=== PATIENT | female | born 1940 | race Caucasian/White ===

== ENCOUNTER 2018-03-20 11:58 | Outpatient (CLI) | payer MEDICARE | END 2018-03-20 11:59 | disposition home or self-care (01) | LOC: BICMAMMO 11:58 | PROVIDERS: ATTEND Internal Medicine | DX: Z12.31 Encounter for screening mammogram for malignant neoplasm of breast (principal); Z80.3 Family history of malignant neoplasm of breast | CPT/HCPCS: 77063; 77067 ==

== ENCOUNTER 2019-01-29 07:53 | Outpatient (CLI) | payer MEDICARE, OTHER ==
--- NOTE | 2019-01-29 09:12 | ULT ---
ABDOMINAL ULTRASOUND: Date: 01/29/19 HISTORY: Hepatic cyst. COMPARISON: 12/19/03. TECHNIQUE: Utilizing a multihertz transducer, sonographic imaging of the abdomen is performed in the longitudina l and transverse plane. FINDINGS: There is slight heterogeneity of the hepatic parenchymal echotexture which may be due to hepatic stea tosis or hepatocellular disease. Subsequent evaluation for hepatic masses and intrahepatic biliary di latation is limited. Nevertheless, there is anechoic focus with thin, imperceptible davidson, and throug h-transmission in the left hepatic lobe measuring 2.9 x 2.4 x 2.8 cm, compatible with a solitary hepa tic cyst. Right hepatic lobe measures 14.4 cm. Visualized aorta is unremarkable. IVC is not seen. The head and body of the pancreas have a normal e chotexture. Remainder of the pancreatic parenchyma is obscured by bowel gas. No sonographic evidence of cholelithiasis, gallbladder wall thickening, or pericholecystic fluid. Neg ative Moreno's sign. Common bile duct diameter is 0.5 cm. Right and left kidneys have a normal cortical echotexture. Bilaterally, no hydronephrosis. Right kidn ey measures 5.0 x 4.2 x 10.9 cm. Left kidney measures 4.9 x 5.4 x 10.4 cm. Spleen has a normal echotexture measuring 8.0 cm in maximum dimension. IMPRESSION: 1. Solitary hepatic cyst. 2. Slightly heterogeneous echotexture of the liver which may be due to hepatic steatosis or hepatoce llular disease. Correlate clinically. When compared to the previous examination, the hepatic cyst has increased in size. Previously, the cyst measured 1.6 x 1.2 x 1.8 cm. POS: [facility]
== END 2019-01-29 07:54 | disposition home or self-care (01) ==
LOC: BICULT 07:53
PROVIDERS: ATTEND Internal Medicine
DX: K76.89 Other specified diseases of liver (principal); R93.2 Abnormal findings on diagnostic imaging of liver and biliary tract
CPT/HCPCS: 76700

== ENCOUNTER 2019-10-16 09:29 | Outpatient (CLI) | payer MEDICARE, OTHER ==
--- NOTE | 2019-10-16 10:43 | MMO ---
Bilateral MAMMO Bilat Screen [facility]. CLINICAL HISTORY: Patient is 79 years old and is seen for screening. The patient has no family history of breast cancer. The patient has no personal history of cancer. VIEWS: The views performed were: bilateral craniocaudal with tomosynthesis and bilateral mediolateral oblique with tomosynthesis. FILMS COMPARED: The present examination has been compared to prior imaging studies performed at [facility] on 07/16/2013, 03/13/2015, 08/25/2016 and 03/20/2018. This study has been interpreted with the assistance of computer-aided detection. MAMMOGRAM FINDINGS: The breasts are heterogeneously dense, which could obscure a lesion on mammography. Benign calcifications are noted bilaterally. There are no suspicious masses, suspicious calcifications, or new areas of architectural distortion. IMPRESSION: THERE IS NO MAMMOGRAPHIC EVIDENCE OF MALIGNANCY. A ROUTINE FOLLOW-UP MAMMOGRAM IN 1 YEAR IS RECOMMENDED. THE RESULTS OF THIS EXAM WERE SENT TO THE PATIENT. ACR BI-RADS Category 2 - Benign finding MAMMOGRAPHY NOTE: 1. A negative mammogram report should not delay a biopsy if a dominant of clinically suspicious mass is present. 2. Approximately 10% to 15% of breast cancers are not detected by mammography. 3. Adenosis and dense breasts may obscure an underlying neoplasm. Reported by: CALEB JONES MD Electonically Signed: [id number]
== END 2019-10-16 09:30 | disposition home or self-care (01) ==
LOC: BICMAMMO 09:29
PROVIDERS: ATTEND Internal Medicine
DX: Z12.31 Encounter for screening mammogram for malignant neoplasm of breast (principal)
CPT/HCPCS: 77063; 77067

== ENCOUNTER 2025-02-23 14:19 | Inpatient (IN) | payer MEDICARE, OTHER ==
[2025-02-23 16:04] LABS: #Basophils 0.03 10x3/uL (0.0-0.2); #Eosinophils Less than 0.03 10x3/uL (0.0-0.7); #Monocytes 0.82 10x3/uL (0.11-0.59); #Neutrophils 8.38 10x3/uL (1.40-6.50); %Basophils 0.3 % (0.0-1.0); %Eosinophils 0.0 % (0.0-10.0); %Lymphocytes 14.8 % (21.0-51.0); %Monocytes 7.5 % (0.0-10.0); %Neutrophils 76.8 % (42.0-75.0); Hematocrit 40.2 % (36.0-47.0); Hemoglobin 14.3 g/dL (12.0-16.0); Mean Corpuscular Hemoglobin 32.9 pg (27.0-31.0); Mean Corpuscular Volume 92.4 fL (78.0-98.0); Platelet Count 223 10x3/uL (130-400); Red Blood Cell (RBC) Count 4.35 mill/uL (4.20-5.40); White Blood Cell (WBC) Count 10.92 10x3/uL (4.8-10.8)
[2025-02-23] MEDS ORDERED: diphenhydrAMINE 50 MG/ML VIAL ONE (16:19)
[2025-02-23] MEDS ORDERED: Dexamethasone 10 MG/ML VIAL ONE (16:19)
[2025-02-23] MEDS ORDERED: Metoclopramide HCl 10 MG (2 mL) VIAL ONE (16:19)
[2025-02-23 16:20] LABS: ALT (SGPT) 16 U/L (Less than 34); AST (SGOT) 36 U/L (11-34); Albumin 4.4 g/dL (3.1-4.5); Alkaline Phosphatase 62 U/L (40-110); Anion Gap 15 mmol/L (10-20); BUN (Urea Nitrogen) 7 mg/dL (9.8-20.1); Bilirubin, Total 0.5 mg/dL (0.3-1.2); Calc. Creatinine Clearance 0 mL/min (70-130); Calcium 9.5 mg/dL (7.8-10.44); Carbon Dioxide 23 mmol/L (23-31); Chloride 96 mmol/L (98-107); Globulin 2.9 g/dL (2.4-3.5); Glucose 93 mg/dL (83-110); Potassium 3.3 mmol/L (3.5-5.1); Sodium 131 mmol/L (136-145)
[2025-02-23 16:25] LABS: Troponin I 0.025 ng/mL (< 0.028)
[2025-02-23] MEDS ORDERED: Acetaminophen 325 MG TAB PO PRN (17:36)
[2025-02-23] MEDS ORDERED: Ondansetron PF 4 MG/2 ML Vial IVP PRN (17:36)
[2025-02-23 18:45] VITALS: BMI 30.7
[2025-02-23] MEDS: Famotidine/PF 20 mg/2ml Vial SLOW IVP SCH (20:32)
[2025-02-23] MEDS: levETIRAcetam 500 MG (5 mL) VIAL SLOW IVP SCH (20:32)
[2025-02-23] MEDS: Ketorolac Tromethamine 30 MG (1 mL) VIAL IVP PRN (20:32)
[2025-02-24 05:43] LABS: #Basophils Less than 0.03 10x3/uL (0.0-0.2); #Eosinophils Less than 0.03 10x3/uL (0.0-0.7); #Monocytes 0.07 10x3/uL (0.11-0.59); #Neutrophils 4.03 10x3/uL (1.40-6.50); %Basophils 0.0 % (0.0-1.0); %Eosinophils 0.0 % (0.0-10.0); %Lymphocytes 20.9 % (21.0-51.0); %Monocytes 1.3 % (0.0-10.0); %Neutrophils 77.2 % (42.0-75.0); Hematocrit 36.6 % (36.0-47.0); Hemoglobin 12.7 g/dL (12.0-16.0); Mean Corpuscular Hemoglobin 32.5 pg (27.0-31.0); Mean Corpuscular Volume 93.6 fL (78.0-98.0); Platelet Count 229 10x3/uL (130-400); Red Blood Cell (RBC) Count 3.91 mill/uL (4.20-5.40); White Blood Cell (WBC) Count 5.22 10x3/uL (4.8-10.8)
[2025-02-24 05:55] LABS: Anion Gap 14 mmol/L (10-20); BUN (Urea Nitrogen) 11 mg/dL (9.8-20.1); Calc. Creatinine Clearance 105 mL/min (70-130); Calcium 8.9 mg/dL (7.8-10.44); Carbon Dioxide 21 mmol/L (23-31); Chloride 104 mmol/L (98-107); Glucose 122 mg/dL (83-110); Potassium 3.8 mmol/L (3.5-5.1); Sodium 135 mmol/L (136-145)
[2025-02-24] MEDS: D5 1/2 NS w/10 mEq KCl 1,000 ML/1,000 ML BAG IV SCH (16:17)
[2025-02-24] MEDS: Carvedilol 3.125 MG TAB PO SCH (21:28)
[2025-02-25] MEDS: Pantoprazole 40 MG DR.TAB PO SCH (09:34)
[2025-02-25 12:02] VITALS: BP 186/81; TEMP 97.9
== END 2025-02-25 13:53 | disposition home health service (06) | DRG 54 ==
LOC: ERS 14:19 → 2NO 17:12
PROVIDERS: ADMIT Internal Medicine; ATTEND Family Medicine
DX: D32.0 Benign neoplasm of cerebral meninges (principal); G93.41 Metabolic encephalopathy; G93.6 Cerebral edema; I10 Essential (primary) hypertension; I48.91 Unspecified atrial fibrillation; E03.9 Hypothyroidism, unspecified; K21.9 Gastro-esophageal reflux disease without esophagitis; Z88.5 Allergy status to narcotic agent; Z90.49 Acquired absence of other specified parts of digestive tract; Z90.710 Acquired absence of both cervix and uterus; Z90.89 Acquired absence of other organs
CPT/HCPCS: 36415; 36416; 70450; 70553; 71045; 76376; 80048; 80053; 84443; 84484; 85025; 93005; 94760; 96374; 96375; J1100; J1200; J1885; J1953; J2060; J2765; J3480; J3490

== ENCOUNTER 2025-03-09 14:24 | Emergency (ER) | payer MEDICARE, OTHER ==
[2025-03-09] MEDS ORDERED: Boostrix 0.5 ML (Tdap) VIAL (>/=7 yrs of age) ONE (15:27)
[2025-03-09] MEDS ORDERED: Lidocaine 1% PF 5 ML VIAL ONE (16:19)
== END 2025-03-09 17:15 | disposition home or self-care (01) ==
LOC: ERS 14:24
DX: S01.21XA Laceration without foreign body of nose, initial encounter (principal); I10 Essential (primary) hypertension; I48.91 Unspecified atrial fibrillation; E03.9 Hypothyroidism, unspecified; K21.9 Gastro-esophageal reflux disease without esophagitis; Z23 Encounter for immunization; Z79.890 Hormone replacement therapy; Z79.899 Other long term (current) drug therapy; W01.10XA Fall on same level from slipping, tripping and stumbling with subsequent striking against unspecified object, initial encounter
CPT/HCPCS: 70450; 72125; 90715; J2250; 12011; 90471; 96374